=== PATIENT | male | born 1980 | race Caucasian/White ===

== ENCOUNTER 2016-06-19 09:46 | Emergency (ER) | payer SELFPAY ==
--- NOTE | 2016-06-19 10:11 | Emergency Department Report ---
Chief Complaint: Abdominal Pain Stated Complaint: ABD PAIN/BACK PAIN Time Seen by Provider: 06/19/16 10:06 - HPI History of Present Illness: 35-year-old male presents today with upper abdominal pain 3 days and lower back pain 2 months. Patient states he has history of pancreatitis and drained out of his oxycodone 15 mg 3 days ago. Denies fever, chills, nausea, vomiting, chest pain, shortness of breath. - ROS Review of Systems: Per HPI - Exam Vital Signs: Vital Signs 06/19/16 09:58 Temperature 98.9 F Pulse Rate 81 Respiratory 16 Rate Blood Pressure 121/89 O2 Sat by Pulse 100 Oximetry Physical Exam: General: 35-year-old male in no acute distress. Well-developed, well-nourished. CV: Regular rate and rhythm. Lungs: Clear to auscultation bilaterally. Abdomen: Minimal tenderness to palpation of the epigastric region. No guarding or rebound tenderness. MSE screening note: Focused history and physical exam performed. Due to findings the following was ordered: ED Disposition for MSE Condition: Stable
[2016-06-19 10:54] LABS: Basophils % (Auto) 0.6 % (0.0-1.8); Eosinophils % (Auto) 0.4 % (0.0-4.3); Hematocrit 37.9 % (35.5-45.6); Hemoglobin 12.4 gm/dl (11.8-15.2); Mean Corpuscular HGB Conc 33 % (32-34); Mean Corpuscular Hemoglobin 29 pg (28-32); Mean Corpuscular Volume 89 fl (84-94); Platelet Count 289 K/mm3 (140-440); Red Blood Count 4.26 M/mm3 (3.65-5.03); Red Cell Distribution Width 13.8 % (13.2-15.2); White Blood Count 13.7 K/mm3 (4.5-11.0)
[2016-06-19 11:04] LABS: Amylase 59 units/L (27-131); BUN/Creatinine Ratio 18.33; Blood Urea Nitrogen 11 mg/dL (9-20); Calcium 9.3 mg/dL (8.4-10.2); Carbon Dioxide 26 mmol/L (22-30); Chloride 102.7 mmol/L (98-107); Glucose 96 mg/dL (75-100); Lipase 17 units/L (13-60); Potassium 4.1 mmol/L (3.6-5.0); Sodium 142 mmol/L (137-145)
[2016-06-19 11:05] LABS: Anion Gap 17 mmol/L
--- NOTE | 2016-06-19 22:35 | Emergency Department Report ---
ED Abdominal Pain HPI - General Chief Complaint: Abdominal Pain Stated Complaint: ABD PAIN/BACK PAIN Time Seen by Provider: 06/19/16 10:06 Source: patient Mode of arrival: Ambulatory Limitations: No Limitations - History of Present Illness Initial Comments: The patient states " can you please give me enough oxycodone to last him until Friday. I was taking the 15 mg." He states that he was discharged from pain clinic approximately one month ago. He claims that he has insurance and now will be followed by [facility]. He also states that he has an appointment for evaluation at [facility] on Friday. He does not complain of any acute pain. He states that he's had diffuse back and abdominal pain for months if not years. Has a history of pancreatitis. He denies any recent vomiting diarrhea fever or chills. He does not really localize his pain more than "back and abdomen". MD Complaint: abdominal pain -: month(s), year(s) Location: diffuse Radiation: none Migration to: no migration Severity: moderate Consistency: intermittent Improves With: nothing Worsens With: nothing Context: other (history of pancreatitis) Associated Symptoms: denies other symptoms - Related Data Previous Rx's Medication Instructions Recorded Last Taken Type oxyCODONE /ACETAMINOPHEN [Percocet 1 tab PO Q6HR PRN #10 tablet 06/19/16 Unknown Rx 5/325] Allergies Allergy/AdvReac Type Severity Reaction Status Date / Time ibuprofen Allergy Unknown Verified 06/19/16 10:04 ketorolac tromethamine Allergy Unknown Verified 06/19/16 10:04 [From Toradol] NSAIDS (Non-Steroidal Allergy Unknown Verified 06/19/16 10:04 Anti-Inflamma tramadol Allergy Seizure Verified 06/19/16 10:04 ED Review of Systems ROS: Stated complaint: ABD PAIN/BACK PAIN Other details as noted in HPI Constitutional: denies: chills, fever Eyes: denies: eye pain, eye discharge, vision change ENT: denies: ear pain, throat pain Respiratory: denies: cough, shortness of breath, wheezing Cardiovascular: denies: chest pain, palpitations Endocrine: no symptoms reported Gastrointestinal: abdominal pain. denies: nausea, diarrhea Genitourinary: denies: urgency, dysuria Musculoskeletal: denies: back pain, joint swelling, arthralgia Skin: denies: rash, lesions Neurological: denies: headache, weakness, paresthesias Psychiatric: denies: anxiety, depression Hematological/Lymphatic: denies: easy bleeding, easy bruising ED Past Medical Hx - Past Medical History Hx Kidney Stones: Yes Additional medical history: Pancreatitis - Surgical History Past Surgical History?: No - Social History Smoking Status: Never Smoker Substance Use Type: Prescribed - Medications Home Medications: Home Medications Medication Instructions Recorded Confirmed Last Taken Type oxyCODONE /ACETAMINOPHEN [Percocet 1 tab PO Q6HR PRN #10 tablet 06/19/16 Unknown Rx 5/325] ED Physical Exam - General Limitations: No Limitations General appearance: alert, in no apparent distress, cachectic (somewhat) - Head Head exam: Present: atraumatic, normocephalic - Eye Eye exam: Present: normal appearance. Absent: scleral icterus - ENT ENT exam: Present: mucous membranes moist - Neck Neck exam: Present: normal inspection - Respiratory Respiratory exam: Present: normal lung sounds bilaterally. Absent: respiratory distress - Cardiovascular Cardiovascular Exam: Present: regular rate, normal rhythm. Absent: systolic murmur, diastolic murmur, rubs, gallop - GI/Abdominal GI/Abdominal exam: Present: soft, normal bowel sounds. Absent: distended, tenderness, guarding, rebound, rigid, mass, bruit, pulsatile mass, hernia - Rectal Rectal exam: Present: deferred - Extremities Exam Extremities exam: Present: normal inspection - Back Exam Back exam: Present: normal inspection. Absent: CVA tenderness (R), CVA tenderness (L), muscle spasm, paraspinal tenderness, vertebral tenderness, rash noted - Neurological Exam Neurological exam: Present: alert, oriented X3, CN II-XII intact. Absent: motor sensory deficit - Psychiatric Psychiatric exam: Present: normal affect, normal mood - Skin Skin exam: Present: warm, dry, intact, normal color. Absent: rash ED Course Vital Signs 06/19/16 09:58 Temperature 98.9 F Pulse Rate 81 Respiratory 16 Rate Blood Pressure 121/89 O2 Sat by Pulse 100 Oximetry - Reevaluation(s) Reevaluation #1: The patient has had a prior CT of the abdomen and pelvis here. He had some pericolonic findings on an uncontrasted CT. It looked rather nonspecific. He does not have anything to suggest a colitis at this juncture. He does have a mild leukocytosis. However I do not think is clinically significant under the circumstances. Repeat CT is not warranted. 06/19/16 23:04 06/19/16 23:05 ED Medical Decision Making - Lab Data Result diagrams: 06/19/16 10:38 06/19/16 10:38 Laboratory Results - last 24 hr 06/19/16 06/19/16 10:38 10:38 WBC 13.7 H RBC 4.26 Hgb 12.4 Hct 37.9 MCV 89 MCH 29 MCHC 33 RDW 13.8 Plt Count 289 Lymph % (Auto) 19.9 [place] % (Auto) 5.3 Eos % (Auto) 0.4 Baso % (Auto) 0.6 Lymph # 2.7 [place] # 0.7 Eos # 0.1 Baso # 0.1 Seg Neutrophils % 73.8 H Seg Neutrophils # 10.1 H Sodium 142 Potassium 4.1 Chloride 102.7 Carbon Dioxide 26 Anion Gap 17 BUN 11 Creatinine 0.6 L Estimated GFR > 60 BUN/Creatinine Ratio 18.33 Glucose 96 Calcium 9.3 Amylase 59 Lipase 17 Critical care attestation.: If time is entered above; I have spent that time in minutes in the direct care of this critically ill patient, excluding procedure time. ED Disposition Clinical Impression: Abdominal pain Qualifiers: Abdominal location: generalized Qualified Code(s): R10.84 - Generalized abdominal pain Chronic lower back pain Qualifiers: Back pain laterality: unspecified Sciatica presence: without sciatica Qualified Code(s): M54.5 - Low back pain; G89.29 - Other chronic pain Disposition: DISCHARGED TO HOME OR SELFCARE Is pt being admited?: No Does the pt Need Aspirin: No Condition: Stable Instructions: Abdominal Pain (ED), Chronic Back Pain (ED), Chronic Pain (ED) Additional Instructions: Follow-up with primary care and [facility] as you have planned. Prescriptions: oxyCODONE /ACETAMINOPHEN [Percocet 5/325] 1 tab PO Q6HR PRN #10 tablet PRN Reason: Pain Referrals: PRIMARY CARE, [Primary Care Provider] - 3-5 Days Time of Disposition: 23:08
[2016-06-20 06:36] VITALS: BP 138/75
== END 2016-06-19 23:30 | disposition home or self-care (01) ==
LOC: ED 09:46
DX: R10.84 Generalized abdominal pain (principal); G89.29 Other chronic pain; I10 Essential (primary) hypertension; Z88.8 Allergy status to other drugs, medicaments and biological substances
CPT/HCPCS: 36415; 80048; 82150; 83690; 85025; 99283

== ENCOUNTER 2016-07-07 16:20 | Emergency (ER) | payer SELFPAY ==
--- NOTE | 2016-07-07 17:04 | Emergency Department Report ---
Chief Complaint: Abdominal Pain Stated Complaint: ABD/BACK PAIN Time Seen by Provider: 07/07/16 16:20 - HPI History of Present Illness: Patient is a 35-year-old female returning to the ED complaining of lower back pain and mid abdominal pain. Patient states history of pancreatitis and has appointment with his specialist next week at [facility] in [place]. Patient states he ran out of his pain medications on Friday and then he called his specialist was told to go to the ER because he cannot be seen sooner. Patient denies fevers/nausea/vomiting/chills/diarrhea/constipation/chest pains or shortness of breath/trauma/fall. - ROS Review of Systems: As noted in HPI - Exam Vital Signs: Vital Signs 07/07/16 16:22 Temperature 99.0 F Pulse Rate 73 Blood Pressure 129/85 O2 Sat by Pulse 100 Oximetry Physical Exam: GENERAL: Alert and oriented x3, no apparent distress, Normal Gait, atraumatic. HEAD: Head is normocephalic and a-traumatic. NECK: Supple. Non edematous, No carotid bruits. No lymphadenopathy or thyromegaly. LUNGS: Symetrical with respiration, No wheezing, no rales or crackles, CTAB. HEART: S1, S2 present, regular rate and rhythm without murmur, no rubs, no gallops. ABDOMEN: No organomegaly was noted,Positive bowel sounds, soft, and non- distended. . Nontender to palpation on all Quadrants, NO CVA tenderness. SKIN: Warm and dry, No lesions, No ulceration or induration present. MSE screening note: Focused history and physical exam performed. Due to findings the following was ordered: ED Medical Decision Making - Medical Decision Making Labs ordered. Vital signs stable. Patient is in no distress. Patient awaiting to be seen by ED physician. ED Disposition for MSE Condition: Stable
[2016-07-07 20:30] LABS: Hematocrit 39.3 % (35.5-45.6); Hemoglobin 12.9 gm/dl (11.8-15.2); Mean Corpuscular HGB Conc 33 % (32-34); Mean Corpuscular Hemoglobin 29 pg (28-32); Mean Corpuscular Volume 90 fl (84-94); Platelet Count 211 K/mm3 (140-440); Red Blood Count 4.38 M/mm3 (3.65-5.03); Red Cell Distribution Width 14.2 % (13.2-15.2); White Blood Count 15.2 K/mm3 (4.5-11.0)
[2016-07-07 20:44] LABS: BUN/Creatinine Ratio 17.14; Calcium 9.5 mg/dL (8.4-10.2)
[2016-07-07] MEDS ORDERED: MORPHINE IM ONE (21:00)
[2016-07-07] MEDS ORDERED: VALIUM IM ONE (21:00)
[2016-07-07] MEDS ORDERED: ZOFRAN ODT PO ONE (21:00)
[2016-07-07 21:15] LABS: Blastocytes % (Manual) 0 %
[2016-07-07 21:16] LABS: Basophils % (Manual) 0 % (0.0-1.8); Diff Status Complete; Eosinophils % (Manual) 0 % (0.0-4.3); Ovalocytes 1+
[2016-07-07 21:23] LABS: Albumin 4.7 g/dL (3.9-5); Bilirubin,Total 0.2 mg/dL (0.1-1.2); Chloride 97.7 mmol/L (98-107); Potassium 4.1 mmol/L (3.6-5.0)
--- NOTE | 2016-07-07 22:28 | Admit Criteria Form ---
Admission Criteria Documentation: ABDOMINAL PAIN: OBSERVATION CARE USE THIS FORM ONLY WHEN INPATIENT ADMISSION CRITERIA ARE NOT MET. (Place X for any and all applicable criteria): Placement for observation care is indicated for a patient with ANY ONE of the following(1)(2)(3)(4)(5))(6): []I. Suspected condition requiring continued monitoring (e.g., ectopic , appendicitis) [A] []II. Undiagnosed pain after evaluation and initial treatment with ANY ONE of the following: []a) Continued pain unrelieved by symptomatic treatment []b) Patient unable to maintain hydration status []c) Concerning finding on examination (e.g., increasing tenderness, focal abdominal finding) or diagnostic testing (e.g., air fluid level on x-ray) []III. A child whose situation includes ANY ONE of the following: []a) Clinical response to outpatient therapy uncertain []b) Outpatient supervision by parents or caregivers uncertain [X]IV. Other observation care needs. (Also use General Criteria: Observation Care). The original [facility] content created by [facility] has been revised. The portions of the content which have been revised are identified through the use of italic text, and [facility] has neither reviewed nor approved the modified material. All other unmodified content is copyright [facility]. Please see references footnoted in the original [facility] edition 2015 Admission Criteria Met: Yes
--- NOTE | 2016-07-07 22:37 | Emergency Department Report ---
HPI - General Chief Complaint: Abdominal Pain Time Seen by Provider: 07/07/16 20:44 - HPI HPI: The patient is a 35-year-old male who presents for evaluation of abdominal pain and back pain. The patient reports epigastric abdominal pain and low back pain for the past 3 days, abdominal pain cramping and sharp in quality, back pain aching in quality, both 10 out of 10 in severity, exacerbated by movement of the abdomen and lower back. The patient denies fever, chills, night sweats, chest pain, dyspnea, vomiting, diarrhea, blood in the stool, dark tarry stool, dysuria, hematuria, flank pain, genital discharge, inability to pass flatus. ED Past Medical Hx - Past Medical History Hx Kidney Stones: Yes Additional medical history: Pancreatitis - Social History Smoking Status: Current Some Day Smoker Substance Use Type: Prescribed - Medications Home Medications: Home Medications Medication Instructions Recorded Confirmed Last Taken Type oxyCODONE /ACETAMINOPHEN [Percocet 1 tab PO Q6HR PRN #10 tablet 06/19/16 Unknown Rx 5/325] HYDROcodone/APAP 7.5-325 [[place] 1 each PO Q8HR PRN #12 tablet 07/07/16 Unknown Rx 7.5-325 mg TAB] ED Review of Systems ROS: Stated complaint: ABD/BACK PAIN Other details as noted in HPI Constitutional: denies: fever ENT: denies: throat or neck pain Respiratory: denies: cough, shortness of breath Cardiovascular: denies: chest pain Endocrine: denies unexplained weight loss or gain Gastrointestinal: reports abdominal pain, nausea Genitourinary: denies: dysuria Musculoskeletal: reports back pain Skin: denies: rash Neurological: denies: headache Hematological/Lymphatic: denies: easy bleeding or easy bruising Psych: denies sadness or hopelessness Physical Exam - Physical Exam Vital Signs: Vital Signs 07/07/16 07/07/16 07/07/16 16:22 20:05 22:03 Temperature 99.0 F Pulse Rate 73 62 Respiratory 18 18 Rate Blood Pressure 129/85 Blood Pressure 119/78 [Left] O2 Sat by Pulse 100 100 100 Oximetry Physical Exam: General: well-nourished, well-developed, no acute distress Head: Normocephalic, atraumatic Eyes: normal sclera ENT: Mucous membranes are pink and moist Neck: trachea midline, neck supple, No neck stiffness, no cervical adenopathy Respiratory: Breath sounds equal bilaterally, no wheezing, rales, or rhonchi Cardio: S1 and S2 present, no murmurs, rubs, gallops, capillary refill is brisk Abdomen: Normoactive bowel sounds, soft abdomen, epigastric tenderness to palpation present Back: positive tenderness to palpation present to bilateral lower thoracic and lumber paraspinal musculature, no midline spinous tenderness to palpation present, normal active range of motion at the hip intact, no spinous step-off or obvious deformity, ipsi-lateral and contralateral straight leg raise tests are negative. On extremity testing, compartments are soft and pliable, no obvious gross motor strength deficit, 5+ motor strength, including extension of the great toe bilaterally, no muscular atrophy, spasticity, fasciculations, or clonus, no obvious gross sensation deficit including web space between 1st and 2nd toes, reflexes 2+ & symmetric on DTR testing at the knee and ankle joints, distal pulses intact. Musc: No pitting edema Skin: No rash Neuro: no facial drooping, normal speech Psych: Normal affect ED Course Vital Signs 07/07/16 07/07/16 07/07/16 16:22 20:05 22:03 Temperature 99.0 F Pulse Rate 73 62 Respiratory 18 18 Rate Blood Pressure 129/85 Blood Pressure 119/78 [Left] O2 Sat by Pulse 100 100 100 Oximetry ED Medical Decision Making - Lab Data Result diagrams: 07/07/16 20:07 07/07/16 20:06 - Medical Decision Making The patient was seen and examined by myself. The patient is placed on a case monitor and continuous pulse ox. On initial evaluation, the patient was found to be in no distress. Evaluation orders are placed. The patient is given an IM dose of valium for his pain. Lab results were non-concerning including WBC , hemoglobin, hematocrit, electrolytes, renal function, LFTs, lipase, and urinalysis. The patient was reevaluated and reported that their symptoms were markedly improved. The patient is stable for discharge with outpatient follow- up. The patient is given follow-up and return instructions. The patient expressed understanding and agreed with the plan. The patient is discharged in stable condition. Critical care attestation.: If time is entered above; I have spent that time in minutes in the direct care of this critically ill patient, excluding procedure time. ED Disposition Clinical Impression: Abdominal pain, acute, epigastric, Acute bilateral low back pain without sciatica Disposition: DISCHARGED TO HOME OR SELFCARE Is pt being admited?: No Does the pt Need Aspirin: No Condition: Stable Instructions: Acute Low Back Pain (ED), Acute Abdominal Pain (ED) Referrals: PRIMARY CARE, [Primary Care Provider] - 3-5 Days Time of Disposition: 22:37
[2016-07-07 23:12] VITALS: BP 119/75
== END 2016-07-07 23:13 | disposition home or self-care (01) ==
LOC: ED 16:20
DX: R10.13 Epigastric pain (principal); M54.5 Low back pain; F17.200 Nicotine dependence, unspecified, uncomplicated; Z87.442 Personal history of urinary calculi
CPT/HCPCS: 36415; 80053; 83690; 85007; 85025; 96372; 99284; J2270; J3360; Q0162

== ENCOUNTER 2016-11-17 12:58 | Emergency (ER) | payer SELFPAY ==
[2016-11-17 13:33] LABS: Basophils % (Auto) 0.3 % (0.0-1.8); Eosinophils % (Auto) 0.6 % (0.0-4.3); Hematocrit 45.5 % (35.5-45.6); Hemoglobin 14.9 gm/dl (11.8-15.2); Mean Corpuscular HGB Conc 33 % (32-34); Mean Corpuscular Hemoglobin 30 pg (28-32); Mean Corpuscular Volume 90 fl (84-94); Platelet Count 250 K/mm3 (140-440); Red Blood Count 5.07 M/mm3 (3.65-5.03); White Blood Count 13.7 K/mm3 (4.5-11.0)
[2016-11-17 13:46] LABS: Alanine Aminotransferase 9 units/L (7-56); Albumin 5.2 g/dL (3.9-5); Albumin/Globulin Ratio 1.7 %; Alkaline Phosphatase 63 units/L (35-129); Anion Gap 23 mmol/L; BUN/Creatinine Ratio 16.15; Blood Urea Nitrogen 21 mg/dL (9-20); Calcium 10.8 mg/dL (8.4-10.2); Carbon Dioxide 26 mmol/L (22-30); Chloride 96.6 mmol/L (98-107); Glucose 150 mg/dL (75-100); Potassium 4.2 mmol/L (3.6-5.0); Sodium 141 mmol/L (137-145); Total Protein 8.2 g/dL (6.3-8.2)
[2016-11-17 13:51] LABS: Bilirubin,Direct < 0.2 mg/dL (0-0.2)
[2016-11-17] MEDS ORDERED: MORPHINE IV ONE ×2 (20:28→22:16)
[2016-11-17] MEDS ORDERED: ZOFRAN IV ONE (20:28)
--- NOTE | 2016-11-17 20:41 | Emergency Department Report ---
HPI - General Chief Complaint: Abdominal Pain Time Seen by Provider: 11/17/16 20:15 - HPI HPI: This is a 35-year-old male presents to the emergency department with complaint of a few weeks of abdominal pain and back pain. Patient says that he had an episode of pain on the way to the hospital today that caused him to have one episode of vomiting and is closed. Patient says that he has seen his camera mechanic, Dr. Valenzuela, regarding his abdominal pain and was told that he should be seen in the emergency department. He went the very next day to [facility] but says that no imaging was done and he did not receive adequate pain control. He then went to [facility] again yesterday but says he left prior to seeing a physician as they did not provide him enough relief as well. He has a history of chronic pancreatitis and goes to a pain management physician for her chronic pains. He says that his pain management physician is a Dr. aguilar and his primary care doctor is a . No recent travel or sick contacts at home. He was taking oxycodone for his symptoms up until a few days ago when he ran out. ED Past Medical Hx - Past Medical History Hx Kidney Stones: Yes Additional medical history: Pancreatitis, h/o painful managment for chronic pain - Surgical History Past Surgical History?: No - Social History Smoking Status: Current Some Day Smoker Substance Use Type: None - Medications Home Medications: Home Medications Medication Instructions Recorded Confirmed Last Taken Type HYDROcodone/ACETAMINOPHEN [Vicodin 7.5 mg PO Q8HR 07/12/16 07/12/16 07/12/16 07: 10 History HP 10-300 mg TAB] Ondansetron [Zofran Odt] 4 mg PO Q8HR PRN #20 tab.rapdis 07/13/16 Unknown Rx Oxycodone HCl/Acetaminophen 1 each PO Q6HR PRN #30 tablet 07/13/16 Unknown Rx [Percocet 10/325 mg] oxyCODONE /ACETAMINOPHEN [Percocet 1 tab PO Q6HR PRN #5 tablet 11/17/16 Unknown Rx 5/325] ED Review of Systems ROS: Stated complaint: ABDOMINAL PAIN/VOMITING Other details as noted in HPI Comment: All other systems reviewed and negative Constitutional: denies: chills, fever Eyes: denies: eye pain, eye discharge, vision change ENT: denies: ear pain, throat pain Respiratory: denies: cough, shortness of breath, wheezing Cardiovascular: denies: chest pain, palpitations Gastrointestinal: abdominal pain, nausea, vomiting Genitourinary: denies: urgency, dysuria Musculoskeletal: back pain. denies: arthralgia Skin: denies: rash, lesions Neurological: denies: headache, weakness, paresthesias Physical Exam - Physical Exam Vital Signs: Vital Signs 11/17/16 13:13 Temperature 97.8 F Pulse Rate 98 H Respiratory 17 Rate Blood Pressure 145/110 O2 Sat by Pulse 100 Oximetry Physical Exam: GENERAL: The patient is well-developed well-nourished. HEENT: Normocephalic. Atraumatic. Extraocular motions are intact. Patient has moist mucous membranes. NECK: Supple. Trachea is midline. CHEST/LUNGS: Clear to auscultation. There is no respiratory distress noted. HEART/CARDIOVASCULAR: Regular. There is no tachycardia. There is no gallop rub or murmur. ABDOMEN: Abdomen is soft. There is some tenderness to palpation to the upper quadrants of the abdomen. Patient has normal bowel sounds. There is no abdominal distention. SKIN: There is no rash. There is no edema. There is no diaphoresis. NEURO: The patient is awake, alert, and oriented. The patient is cooperative. The patient has no focal neurologic deficits. The patient has normal speech. MUSCULOSKELETAL: There is no tenderness or deformity. There is no limitation range of motion. There is no evidence of acute injury. Muscle strength 5 out of 5 for upper and lower extremities including EHL bilaterally. BACK: There is both midline and paraspinal tenderness from the mid thoracic down to the mid lumbar but no step-off or deformity. ED Course Vital Signs 11/17/16 13:13 Temperature 97.8 F Pulse Rate 98 H Respiratory 17 Rate Blood Pressure 145/110 O2 Sat by Pulse 100 Oximetry - Reevaluation(s) Reevaluation #1: It should be noted that I have checked the [employer] prescription monitoring system and the patient filled oxycodone 15 mg tablets 45 on 10/25/16, oxycodone 5 mg x 16 on 11/06/16 and oxycodone 15 mg x 45 on 11/07/16. 11/17/16 20:39 ED Medical Decision Making - Lab Data Result diagrams: 11/17/16 13:20 11/17/16 13:20 - Radiology Data Radiology results: report reviewed EXAM: CT ABDOMEN PELVIS W CON HISTORY: Abd pain TECHNIQUE: CT abdomen and pelvis with oral and intravenous contrast PRIORS: None. FINDINGS: No acute abnormality identified in the lung bases. No focal abnormality identified within the liver parenchyma. The spleen demonstrates normal size and attenuation. No pancreatic abnormalities seen. The kidneys demonstrate symmetric contrast enhancement. Adrenal glands are unremarkable. No evidence of hydronephrosis. Abdominal aorta is normal in caliber. No pathologically enlarged lymph nodes are identified. No signs of free fluid or free air There is some mucosal thickening involving proximal jejunal loops which are mildly distended. No definitive transition is observed No pericolonic inflammatory changes are observed. The appendix is not definitively identified. Urinary bladder is unremarkable. IMPRESSION: Mucosal thickening of proximal jejunal loops. Nonspecific however may reflect inflammatory bowel, enteritis or other etiologies. If continued clinical concern a followup small-bowel follow-through could be obtained. Otherwise negative study. - Medical Decision Making 35-year-old male presents emergency Department with complaint of abdominal pain and some back pain that is been going on consistently over the past week or so. He has seen his camera mechanic, and this is his third visit to an emergency department. The patient is overzealosly asking for pain medication. His labs are mostly unremarkable and do not show any etiology of his symptoms. A CT of the abdomen and pelvis with IV contrast was done that did not show any signs of any pancreatitis, intestinal or urinary tract obstructions or any acute process. The patient has some reproducible pain to his back it is both midline and paraspinal and there is no step-off or deformity. Patient has full muscle strength all of his extremities. There are no problems with bowel or bladder, numbness or paresthesias or any neurological deficits. He does not appear to have any of the emergent back conditions such as cauda equina, epidural abscess or cord compression syndrome. The patient has had many narcotic pain medications written for him throughout the month of October. He says that he has a follow-up with his pain doctor on Friday. He has good follow-up with a primary care doctor and camera mechanic. Vital signs stable throughout his ED course. I feel that this patient is safe for discharge home at this time. I have given him 5 total pain pills in order to get him to his appointment with his pain physician but he has been also encouraged to follow up with his camera mechanic and his primary care physician. He has been encouraged to return to the closest emergency department with any acute distress. - Differential Diagnosis pancreatitis, cholecystitis, gastroenteritis, muscle spasm Critical Care Time: No Critical care attestation.: If time is entered above; I have spent that time in minutes in the direct care of this critically ill patient, excluding procedure time. ED Disposition Clinical Impression: History of chronic pancreatitis Abdominal pain Qualifiers: Abdominal location: generalized Qualified Code(s): R10.84 - Generalized abdominal pain Chronic back pain Qualifiers: Back pain location: back pain in unspecified location Back pain laterality: unspecified Qualified Code(s): M54.9 - Dorsalgia, unspecified Disposition: DISCHARGED TO HOME OR SELFCARE Is pt being admited?: No Condition: Stable Instructions: Abdominal Pain (ED), Back Pain (ED) Additional Instructions: Please follow-up with your camera mechanic, primary care physician and your pain physician as soon as possible. Return to the emergency department with any acute distress. You've been prescribed a medication that is sedating. Therefore this medication cannot be mixed with alcohol, or taken prior to driving, working, or being responsible for children. Prescriptions: oxyCODONE /ACETAMINOPHEN [Percocet 5/325] 1 tab PO Q6HR PRN #5 tablet PRN Reason: Pain Referrals: PRIMARY CAREMD [Primary Care Provider] - [facility] Time of Disposition: 22:54
--- NOTE | 2016-11-17 22:05 | Cat Scan Report ---
FINAL REPORT EXAM: CT ABDOMEN PELVIS W CON HISTORY: Abd pain TECHNIQUE: CT abdomen and pelvis with oral and intravenous contrast PRIORS: None. FINDINGS: No acute abnormality identified in the lung bases. No focal abnormality identified within the liver parenchyma. The spleen demonstrates normal size and attenuation. No pancreatic abnormalities seen. The kidneys demonstrate symmetric contrast enhancement. Adrenal glands are unremarkable. No evidence of hydronephrosis. Abdominal aorta is normal in caliber. No pathologically enlarged lymph nodes are identified. No signs of free fluid or free air There is some mucosal thickening involving proximal jejunal loops which are mildly distended. No definitive transition is observed No pericolonic inflammatory changes are observed. The appendix is not definitively identified. Urinary bladder is unremarkable. IMPRESSION: Mucosal thickening of proximal jejunal loops. Nonspecific however may reflect inflammatory bowel, enteritis or other etiologies. If continued clinical concern a followup small-bowel follow-through could be obtained. Otherwise negative study.
[2016-11-18 01:57] VITALS: BP 122/78
[2016-11-18 02:06] LABS: Bilirubin,Urine NEG (Negative); Blood,Urine NEG (Negative); Ketones,Urine NEG (Negative); Leukocyte Esterase,Urine NEG (Negative); Mucus,Urine FEW /HPF; Nitrite,Urine NEG (Negative); Protein,Urine <15 mg/dL mg/dL (Negative); Urobilinogen,Urine < 2.0 mg/dL (<2.0)
== END 2016-11-18 03:15 | disposition home or self-care (01) ==
LOC: ED 12:58
DX: R10.84 Generalized abdominal pain (principal); M54.9 Dorsalgia, unspecified; G89.29 Other chronic pain; F17.200 Nicotine dependence, unspecified, uncomplicated; K86.1 Other chronic pancreatitis
CPT/HCPCS: 36415; 74177; 80048; 80074; 81001; 82150; 83690; 85025; 96374; 96375; 96376; 99284; J2270; J2405; Q9967

== ENCOUNTER 2017-05-16 09:55 | Emergency (ER) | payer OTHER ==
[2017-05-16 11:04] LABS: Basophils % (Auto) 0.7 % (0.0-1.8); Eosinophils % (Auto) 0.9 % (0.0-4.3); Hematocrit 46.7 % (35.5-45.6); Hemoglobin 15.2 gm/dl (11.8-15.2); Mean Corpuscular HGB Conc 33 % (32-34); Mean Corpuscular Hemoglobin 30 pg (28-32); Mean Corpuscular Volume 91 fl (84-94); Platelet Count 269 K/mm3 (140-440); Red Blood Count 5.15 M/mm3 (3.65-5.03); Red Cell Distribution Width 13.6 % (13.2-15.2); White Blood Count 10.8 K/mm3 (4.5-11.0)
[2017-05-16 11:28] LABS: Alanine Aminotransferase 11 units/L (7-56); Albumin 4.6 g/dL (3.9-5); Albumin/Globulin Ratio 1.8 %; Alkaline Phosphatase 69 units/L (35-129); Anion Gap 21 mmol/L; BUN/Creatinine Ratio 10; Blood Urea Nitrogen 6 mg/dL (9-20); Calcium 9.3 mg/dL (8.4-10.2); Carbon Dioxide 22 mmol/L (22-30); Chloride 102.9 mmol/L (98-107); Glucose 97 mg/dL (75-100); Lipase 13 units/L (13-60); Potassium 3.8 mmol/L (3.6-5.0); Sodium 142 mmol/L (137-145); Total Protein 7.2 g/dL (6.3-8.2)
[2017-05-16 15:26] LABS: Bilirubin,Urine NEG (Negative); Blood,Urine NEG (Negative); Ketones,Urine NEG (Negative); Leukocyte Esterase,Urine NEG (Negative); Mucus,Urine FEW /HPF; Nitrite,Urine NEG (Negative); Protein,Urine <15 mg/dL mg/dL (Negative); Urobilinogen,Urine < 2.0 mg/dL (<2.0)
[2017-05-16 16:16] LABS: Urine Drugs of Abuse Note Disclamer
[2017-05-16] MEDS ORDERED: MORPHINE IV ONE (16:32)
--- NOTE | 2017-05-16 16:36 | Emergency Department Report ---
HPI - General Chief Complaint: Abdominal Pain Time Seen by Provider: 05/16/17 16:01 - HPI HPI: This is a 36-year-old male presents to the emergency department by EMS from home with complaint of some epigastric sharp stabbing pain that started last night it has been going on since. He denies any nausea, vomiting, diarrhea. He has not taken anything for his symptoms prior to presentation. He does not currently have a primary care physician. Recent travel or sick contacts at home. He says that his only past medical history is chronic back pains and a previous episode of pancreatitis. ED Past Medical Hx - Past Medical History Hx Kidney Stones: Yes Additional medical history: Pancreatitis, h/o painful managment for chronic pain - Social History Smoking Status: Current Every Day Smoker Substance Use Type: None - Medications Home Medications: Home Medications Medication Instructions Recorded Confirmed Last Taken Type HYDROcodone/ACETAMINOPHEN [Vicodin 7.5 mg PO Q8HR 07/12/16 07/12/16 07/12/16 07: 10 History HP 10-300 mg TAB] Ondansetron [Zofran Odt] 4 mg PO Q8HR PRN #20 tab.rapdis 07/13/16 Unknown Rx Oxycodone HCl/Acetaminophen 1 each PO Q6HR PRN #30 tablet 07/13/16 Unknown Rx [Percocet 10/325 mg] oxyCODONE /ACETAMINOPHEN [Percocet 1 tab PO Q6HR PRN #5 tablet 11/17/16 Unknown Rx 5/325] ED Review of Systems ROS: Stated complaint: ABDOMINAL PAIN Other details as noted in HPI Comment: All other systems reviewed and negative Constitutional: denies: chills, fever Eyes: denies: eye pain, eye discharge, vision change ENT: denies: ear pain, throat pain Respiratory: denies: cough, shortness of breath, wheezing Cardiovascular: denies: chest pain, palpitations Gastrointestinal: abdominal pain. denies: vomiting Genitourinary: denies: urgency, dysuria Musculoskeletal: denies: back pain, joint swelling, arthralgia Skin: denies: rash, lesions Neurological: denies: headache, weakness, paresthesias Physical Exam - Physical Exam Vital Signs: Vital Signs 05/16/17 05/16/17 10:11 15:50 Temperature 98.2 F 98.6 F Pulse Rate 96 H 74 Respiratory 18 16 Rate Blood Pressure 130/95 Blood Pressure 132/90 [Right] O2 Sat by Pulse 98 100 Oximetry Physical Exam: GENERAL: The patient is well-developed well-nourished. HENT: Normocephalic. Atraumatic. Patient has moist mucous membranes. EYES: Extraocular motions are intact. Pupils equal reactive to light bilaterally. NECK: Supple. Trachea is midline. CHEST/LUNGS: Clear to auscultation. There is no respiratory distress noted. HEART/CARDIOVASCULAR: Regular. There is no tachycardia. There is no gallop rub or murmur. ABDOMEN: Abdomen is soft. There is some tenderness palpation to the epigastric abdomen. No guarding or rebound tenderness. No peritoneal sign. Patient has normal bowel sounds. There is no abdominal distention. SKIN: Skin is warm and dry. NEURO: The patient is awake, alert, and oriented. The patient is cooperative. The patient has no focal neurologic deficits. The patient has normal speech. MUSCULOSKELETAL: There is no tenderness or deformity. There is no limitation range of motion. There is no evidence of acute injury. ED Course Vital Signs 05/16/17 05/16/17 10:11 15:50 Temperature 98.2 F 98.6 F Pulse Rate 96 H 74 Respiratory 18 16 Rate Blood Pressure 130/95 Blood Pressure 132/90 [Right] O2 Sat by Pulse 98 100 Oximetry ED Medical Decision Making - Lab Data Result diagrams: 05/16/17 10:19 05/16/17 10:19 - Radiology Data Radiology results: report reviewed PROCEDURE: CT ABDOMEN PELVIS W CON TECHNIQUE: Computerized axial tomography of the abdomen and pelvis was performed after the IV injection of iodinated nonionic contrast. HISTORY: Abd pain COMPARISON: No prior studies are available for comparison. FINDINGS: Lower Lung [place]: No focal abnormality seen. Upper Abdomen: The liver, the gallbladder, the adrenal glands, the pancreas and the spleen are unremarkable. Kidneys, Ureters and Urinary bladder: No abnormalities are identified. Retroperitoneum: Atherosclerotic changes are seen in the abdominal aorta. No aneurysm is visualized. Nonspecific subcentimeter lymph nodes are seen in the retroperitoneum. No pathologically enlarged lymph nodes are identified. Bowel: Mucosal folds in proximal small bowel, jejunum left upper quadrant on images 42 through images 73 are mildly more prominent than expected. This in a similar location to the previous exam although in a slightly different pattern. I cannot exclude a nonspecific enteritis. I do not see evidence of bowel obstruction or ascites. There is no free intraperitoneal gas. Colon is unremarkable. Normal-appearing appendix is seen in the right lower quadrant. Reproductive organs: Prostate gland is unremarkable. Other: No acute bony abnormalities are identified. IMPRESSION: Prominent mucosal folds proximal small bowel as described above. I cannot exclude a mild nonspecific enteritis. This is in a slightly different pattern than on the prior study. Bowel loops otherwise are unremarkable. No other abnormalities are identified. Transcribed By: CROW Dictated By: JAQUELINE DE SANTIAGO MD Electronically Authenticated By: JAQUELINE DE SANTIAGO MD Signed Date/Time: 05/16/17 5132 - Medical Decision Making This patient presented with a one-day history of some upper abdominal and/or epigastric discomfort. His labs were unremarkable including normal belly labs such as lipase, LFTs and bilirubin. He was given a dose of pain medication. A CT scan of the abdomen and pelvis with IV contrast was done that showed possible mild enteritis. Otherwise no acute process seen. Spoke with the patient regarding his lab and imaging results. He'll be discharged home with a referral for primary care and gastroenterology. He is asking specifically for a prescription for narcotic pain medication. I ran his file on the [employer] prescription monitoring website and he appears to receive 90 of the 15 mg oxycodone, a 30 day supply, each month and last received it on April 25, less than one month ago. The patient says that that is for his chronic back pain and that he has run out. Given that he is using narcotic pain medication more than is prescribed by his pain doctor, told him that I am not comfortable writing him for any narcotic pain medication. He was offered a prescription for Tylenol, which he declined. He has been encouraged to return to the emergency Department with any worsening of his symptoms or any acute distress. - Differential Diagnosis pancreatitis, cholecystitis, cholelithiasis, nephrolithiasis, GERD Critical Care Time: No Critical care attestation.: If time is entered above; I have spent that time in minutes in the direct care of this critically ill patient, excluding procedure time. ED Disposition Clinical Impression: Abdominal pain, acute, epigastric Abdominal pain Qualifiers: Abdominal location: epigastric Qualified Code(s): R10.13 - Epigastric pain Disposition: TO HOME OR SELFCARE Is pt being admited?: No Condition: Stable Instructions: Abdominal Pain (ED) Additional Instructions: Please follow up with a primary care doctor next few days. I've given you a referral for some primary care physicians. I've also given you a referral for a local hospice nurse, Dr. Watson. Return to the emergency Department with any worsening of your symptoms or any acute distress. Referrals: PRIMARY MD WILLIAM [Primary Care Provider] - 3-5 Days ALMA LYONS MD [Staff Physician] - 3-5 Days JORDYN WATSON MD [Staff Physician] - 3-5 Days [facility] [Outside] - 3-5 Days Time of Disposition: 18:33
[2017-05-16 17:57] VITALS: BP 132/90
--- NOTE | 2017-05-16 18:12 | Cat Scan Report ---
FINAL REPORT PROCEDURE: CT ABDOMEN PELVIS W CON TECHNIQUE: Computerized axial tomography of the abdomen and pelvis was performed after the IV injection of iodinated nonionic contrast. HISTORY: Abd pain COMPARISON: No prior studies are available for comparison. FINDINGS: Lower Lung [place]: No focal abnormality seen. Upper Abdomen: The liver, the gallbladder, the adrenal glands, the pancreas and the spleen are unremarkable. Kidneys, Ureters and Urinary bladder: No abnormalities are identified. Retroperitoneum: Atherosclerotic changes are seen in the abdominal aorta. No aneurysm is visualized. Nonspecific subcentimeter lymph nodes are seen in the retroperitoneum. No pathologically enlarged lymph nodes are identified. Bowel: Mucosal folds in proximal small bowel, jejunum left upper quadrant on images 42 through images 73 are mildly more prominent than expected. This in a similar location to the previous exam although in a slightly different pattern. I cannot exclude a nonspecific enteritis. I do not see evidence of bowel obstruction or ascites. There is no free intraperitoneal gas. Colon is unremarkable. Normal-appearing appendix is seen in the right lower quadrant. Reproductive organs: Prostate gland is unremarkable. Other: No acute bony abnormalities are identified. IMPRESSION: Prominent mucosal folds proximal small bowel as described above. I cannot exclude a mild nonspecific enteritis. This is in a slightly different pattern than on the prior study. Bowel loops otherwise are unremarkable. No other abnormalities are identified.
== END 2017-05-16 18:49 | disposition home or self-care (01) ==
LOC: ED 09:55
DX: R10.13 Epigastric pain (principal); F17.200 Nicotine dependence, unspecified, uncomplicated
CPT/HCPCS: 36415; 74177; 80053; 80307; 81001; 83690; 85025; 96374; 99284; J2270; Q9967